=== PATIENT | male | born 1930 | race Native Hawaiian/Other Pacific Islander ===

== ENCOUNTER 2016-11-17 13:26 | Outpatient (CLI) | payer OTHER ==
[2016-11-17 14:34] LABS: PLATELET COUNT 11 K/uL (142-355)
== END 2016-11-17 14:30 | disposition home or self-care (01) ==
LOC: LAB 13:26
PROVIDERS: Internal Medicine Hematology & Oncology
DX: D64.89 Other specified anemias (principal); C20 Malignant neoplasm of rectum; I20.0 Unstable angina; J43.8 Other emphysema; D69.3 Immune thrombocytopenic purpura
CPT/HCPCS: 85027